=== PATIENT | female | born 1990 | race Caucasian/White ===

== ENCOUNTER → 2020-02-05 09:17 | Outpatient (CLI) | payer OTHER, SELFPAY ==
[2020-02-05 10:24] LABS: Add Manual Diff / Slide Review NO; Basophils Absolute Auto 0 /uL (0-100); Basophils Percent Auto 0.4 % (0-2); Eosinophils Absolute Auto 0 /uL (0-450); Eosinophils Percent Auto 0.5 % (2-4); Hematocrit 39.6 % (36-46); Hemoglobin 13.5 g/dL (12.0-16.0); Lymphocytes Absolute Auto 2100 /uL (1100-4500); Lymphocytes Percent Auto 27.2 % (25-40); Mean Corpuscular HGB Conc 34.2 % (30-36); Mean Corpuscular Volume 87.7 fL (80-100); Monocytes Absolute Auto 500 /uL (0-900); Monocytes Percent Auto 5.9 % (3-14); Neutrophils Absolute Auto 5100 /uL (1500-7000); Platelet Count 257 X10^3/uL (150-400); Red Blood Cell Count 4.51 X10^6/uL (4.0-5.2); Red Cell Distribution Width 12.5 % (11.6-14.8); White Blood Cell Count 7.7 X10^3/uL (4.5-11.0)
[2020-02-05 11:05] LABS: TSH w/ Reflex to FT4 1.43 uIU/mL (0.47-4.68)
[2020-02-05 16:42] LABS: Rubella Antibody IgG 28.5 IU/mL (>15)
[2020-02-06 10:36] LABS: Varicella IgG Antibody 2138 index (Immune >165)
[2020-02-08 03:36] LABS: Chlamydia trachomatis Negative (Negative); Mycoplasma genitalium Negative (Negative); Neisseria gonorrhoeae Negative (Negative)
== END ==
PROVIDERS: PCP Obstetrics & Gynecology; Visit Provider Obstetrics & Gynecology
DX: Z11.3 Encounter for screening for infections with a predominantly sexual mode of transmission (principal); Z31.69 Encounter for other general counseling and advice on procreation
CPT/HCPCS: 36415; 84443; 85025; 86762; 86787; 87491; 87591

== ENCOUNTER → 2020-05-21 13:04 | Outpatient (ROUT) | payer OTHER, SELFPAY ==
[2020-05-23 01:07] LABS: Chlamydia trachomatis NAA Negative (Negative); Neisseria gonorrhoeae NAA Negative (Negative)
== END ==
PROVIDERS: PCP Obstetrics & Gynecology; Visit Provider Obstetrics & Gynecology
DX: Z34.01 Encounter for supervision of normal first pregnancy, first trimester (principal)
CPT/HCPCS: 87491; 87591

== ENCOUNTER → 2020-06-03 09:16 | Outpatient (CLI) | payer OTHER, SELFPAY ==
[2020-06-03 09:59] LABS: Add Manual Diff / Slide Review NO; Basophils Absolute Auto 0 /uL (0-100); Basophils Percent Auto 0.5 % (0-2); Eosinophils Absolute Auto 0 /uL (0-450); Eosinophils Percent Auto 0.4 % (2-4); Hematocrit 38.3 % (36-46); Hemoglobin 13.1 g/dL (12.0-16.0); Lymphocytes Absolute Auto 1900 /uL (1100-4500); Lymphocytes Percent Auto 20.1 % (25-40); Mean Corpuscular HGB Conc 34.4 % (30-36); Mean Corpuscular Hemoglobin 30.1 PG (26-34); Mean Corpuscular Volume 87.6 fL (80-100); Monocytes Absolute Auto 800 /uL (0-900); Neutrophils Absolute Auto 6800 /uL (1500-7000); Platelet Count 238 X10^3/uL (150-400); Red Blood Cell Count 4.37 X10^6/uL (4.0-5.2); White Blood Cell Count 9.6 X10^3/uL (4.5-11.0)
[2020-06-03 10:10] LABS: Appearance Urine UA CLEAR; Bilirubin Urine UA NEGATIVE (NEGATIVE); Color Urine UA YELLOW; Glucose Urine UA NEGATIVE (Negative); Ketones Urine UA NEGATIVE (NEGATIVE); Leukocyte Esterase Urine UA NEGATIVE (NEGATIVE); Nitrite Urine UA NEGATIVE (Negative); Occult Blood Urine UA NEGATIVE (Negative); Protein Urine UA NEGATIVE (Negative); Urobilinogen Urine UA 0.2 E.U./dL (0.2)
[2020-06-03 11:19] LABS: Hepatitis B Surface Antigen NEGATIVE s/c (NEGATIVE); Rubella Antibody IgG 20.9 IU/mL (>15)
[2020-06-03 11:25] LABS: HIV 1 & 2 Ab/Ag 4th Gen Combo NEGATIVE (NEGATIVE); Hep C Virus Ab w/Reflex Quant NEGATIVE s/c (NEGATIVE)
[2020-06-04 07:36] LABS: RPR Screen Non Reactive (Non Reactive)
[2020-06-04 08:16] LABS: Varicella IgG Antibody 1558 index (Immune >165)
== END ==
PROVIDERS: PCP Obstetrics & Gynecology; Referring Provider Obstetrics & Gynecology; Visit Provider Obstetrics & Gynecology
DX: Z34.01 Encounter for supervision of normal first pregnancy, first trimester (principal); Z36.0 Encounter for antenatal screening for chromosomal anomalies
CPT/HCPCS: 36415; 80055; 81003; 86787; 86803; 86850; 86900; 86901; 87086; 87389

== ENCOUNTER → 2020-08-12 10:17 | Outpatient (CLI) | payer OTHER, SELFPAY ==
--- NOTE | 2020-08-12 10:18 | DI.US.S_ITS ---
PROCEDURE: US OB >= 14 WEEKS FETUS INDICATIONS: 20 week anatomy scan OUTSIDE/PRIOR DATING DATA: Last menstrual period (LMP): 03/15/20 . LMP-based estimated date of delivery (KEAGAN): 12/20/20 . First dating scan (date and location): 05/21/20 . Estimated date of delivery (KEAGAN) from first dating scan: 12/17/20 . TECHNIQUE: Real-time scanning was performed of the fetus, with image documentation and biometric measurements. Endovaginal scanning: Not performed COMPARISON: [facility], , OB <= 14 WEEKS FETUS, 05/21/2020, 8:31. [facility], , PELVIC COMPLETE, 02/05/2020, 9:15. FINDINGS: General: A single living intrauterine gestation is present. Presentation: Variable. Placenta: Placental position is anterior , without previa. Amniotic fluid index: 12.4 cm, normal range is 5-24 cm. Largest pocket measures 4.2 cm heart rate: 165 beats per minute. Maternal cervical canal: 3.9 cm long. Normal lower limit is 2.5 cm. biometrics: Biparietal diameter: 5.5 cm, 22 weeks 5 days. Head circumference: 19.8 cm, 22 weeks 0 days Abdominal circumference: 18.1 cm, 23 weeks 0 days Femur length: 3.8 cm, 22 weeks 2 days Estimated gestational age from initial scan: 21 weeks 6 days Composite gestational age from present scan: 22 weeks 4 days Estimated weight and percentile: 517 g, 81st percentile Measurement variability for biometric dating: +/- 7 days from 14 weeks to 15 weeks 6 days gestation, +/- 10 days from 16 weeks to 21 weeks 6 days gestation, +/- 2 weeks from 22 weeks to 27 weeks 6 days gestation, +/- 3 weeks for 28 weeks gestation or later. weight reference: 4500 g or EFW >90/95% is considered macrosomia or large for gestational age. EFW <10% is small for gestational age. EFW 5% or less is considered intra-uterine growth restriction. Anatomic survey: Neuro: Ventricles are non-dilated at less than 10 mm. Cisterna magna is normal at 3-11 mm. Cerebellum is normal in size and morphology. Nuchal skin fold: Normal at less than 6 mm between 14-21 weeks gestational age. Face: Nose and lips, facial profile are normal. Spine: No evidence for spina bifida. Heart: 4-chambered heart is present, with normal ventricular outflow tracts. Diaphragm: Diaphragm is intact. Stomach: Left-sided stomach is present. Kidneys: No hydronephrosis. Normal is less than 5 mm in 2nd trimester, less than 7 mm in 3rd trimester. Cord: 3-vessel cord has orthotopic insertion. Bladder: Normal in size. Extremities: All 4 extremities identified. IMPRESSION: Single living intrauterine fetus in variable presentation. Expected interval growth. Normal anatomic survey Dictated by: Italo Robert M.D. on 08/12/2020 at 13:43 Approved by: Italo Robert M.D. on 08/12/2020 at 13:47
== END ==
PROVIDERS: Referring Provider Obstetrics & Gynecology; Visit Provider Obstetrics & Gynecology
DX: Z34.02 Encounter for supervision of normal first pregnancy, second trimester (principal); Z3A.22 22 weeks gestation of pregnancy
CPT/HCPCS: 76811

== ENCOUNTER → 2020-10-07 08:30 | Outpatient (CLI) | payer OTHER, SELFPAY ==
[2020-10-07 10:54] LABS: Hematocrit 32.6 % (36-46)
[2020-10-07 11:01] LABS: GTT (PREG) 1 Hour PP 50gm Dose 92 mg/dL (76-139)
== END ==
PROVIDERS: Obstetrics & Gynecology; PCP Physician Assistant Medical; Referring Provider Internal Medicine Cardiovascular Disease; Visit Provider Internal Medicine Cardiovascular Disease
DX: Z34.02 Encounter for supervision of normal first pregnancy, second trimester (principal); Z3A.26 26 weeks gestation of pregnancy
CPT/HCPCS: 36415; 82950; 85014; 85018

== ENCOUNTER → 2020-11-28 09:45 | Outpatient (CLI) | payer OTHER, SELFPAY ==
[2020-11-29 11:40] LABS: Strep Grp B PCR POS for Grp B Strep
== END ==
PROVIDERS: PCP Physician Assistant Medical; Visit Provider Obstetrics & Gynecology
DX: Z34.03 Encounter for supervision of normal first pregnancy, third trimester (principal); Z3A.36 36 weeks gestation of pregnancy
CPT/HCPCS: 87653

== ENCOUNTER 2020-11-28 10:37 | Outpatient (CLI) | payer OTHER, SELFPAY ==
--- NOTE | 2020-11-28 16:39 | PM.OBTRLD ---
Visit Information Visit Information Date of evaluation: 11/28/20 Primary OB Provider: Tory Smith Reason for Evaluation: Yes non-stress test Comments/Additional reasons for admission: Patient sent from clinic for evaluation due to persistent tachycardia in the setting of copious movement. Patient is a @36+6, otherwise health with an uncomplicated . Vital Signs Vital Signs: [facility] Medical History History of IBS (~2015) Inclusion cyst of vulva Migraines (~2018) Surgical History Anesthesia History of appendectomy Inclusion cyst (~2017) Family History Grandfather Diabetes mellitus Congestive heart failure Grandmother Hyperlipidemia Hypertension Grandfather Cancer Grandmother Diabetes mellitus Hypertension Hyperlipidemia Myocardial infarction Mother No problems noted. Father No problems noted. Social History marital status: household members: spouse lives independently: Yes caregiver/support person: No housing: house pets and animals: No (Allergic to cats. 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 ) special romeo needs: No seatbelt use: always Smoking Status: Never smoker second hand exposure: No alcohol intake: never (Does not drink at all - upsets her stomach. ) substance use type: does not use and marijuana (as a teenager, none since.) during the past year weight has: remained stable caffeine: No (Aversion to it now; knows guidelines.) Type(s) of exercise: walking and normal ROM and activity (Very active job on her feet all day. ) frequency: daily Review of Systems Constitutional Constitutional: Reports system reviewed and no additional complaints, except as documented Evaluation Evaluation Baseline heart rate: 150 Variability: Moderate (11-25) monitor accelerations: Present Monitor Decelerations: Absent Contraction Frequency (minutes): 7 Category of Tracing: Reactive Status: Category l Diagnosis, Plan/Disposition Plan/Disposition Plan: Home with routine precautions. OB Disposition: home
== END 2020-11-28 11:35 | disposition home or self-care (01) ==
LOC: LABOR 10:59 → OB 12-04 15:02
PROVIDERS: PCP Physician Assistant Medical; Referring Provider Obstetrics & Gynecology; Visit Provider Obstetrics & Gynecology
DX: O36.8330 Maternal care for abnormalities of the fetal heart rate or rhythm, third trimester, not applicable or unspecified (principal); Z3A.36 36 weeks gestation of pregnancy
CPT/HCPCS: 59025; 87653; G0378; G0379

== ENCOUNTER 2020-12-15 03:41 | Observation (INO) | payer OTHER, SELFPAY ==
--- NOTE | 2020-12-15 06:53 | P.TNLD_ITS ---
Visit Information Visit Information Date of evaluation: 12/15/20 Primary OB Provider: Rylee Marques Reason for Evaluation: Yes rule out labor Comments/Additional reasons for admission: 30yo at 39w2d here for contractions starting earlier this morning. No LOF or vaginal bleeding. She is feeling her baby move regularly. [facility] Medical History History of IBS (~2016) Inclusion cyst of vulva Migraines (~2018) Surgical History Anesthesia History of appendectomy Inclusion cyst (~2017) Family History Grandfather Diabetes mellitus Congestive heart failure Grandmother Hyperlipidemia Hypertension Grandfather Cancer Grandmother Diabetes mellitus Hypertension Hyperlipidemia Myocardial infarction Mother No problems noted. Father No problems noted. Social History marital status: household members: spouse lives independently: Yes caregiver/support person: No housing: house pets and animals: No (Allergic to cats. 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 ) special romeo needs: No seatbelt use: always Smoking Status: Never smoker second hand exposure: No alcohol intake: never (Does not drink at all - upsets her stomach. ) substance use type: does not use and marijuana (as a teenager, none since.) during the past year weight has: remained stable caffeine: No (Aversion to it now; knows guidelines.) Type(s) of exercise: walking and normal ROM and activity (Very active job on her feet all day. ) frequency: daily Evaluation Evaluation Baseline heart rate: 140 Variability: Moderate (11-25) monitor accelerations: Present Monitor Decelerations: Absent Contraction Frequency (minutes): 3 Uterine Contraction Intensity: Mild Status: Category l Cervical dilation (cm): 1 Cervical effacement (%): 50 station: -3 Diagnosis, Plan/Disposition Final Diagnosis (1) False labor: Status: Acute (2) 39 weeks gestation of : Status: Acute Plan/Disposition Plan: 40yo at 39w2d here with contractions. Pt is having regular contractions, but no cervical change in over an hour. Safe for d/c home with return precautions. OB Disposition: home
== END 2020-12-15 05:27 | disposition home or self-care (01) ==
LOC: LABOR 03:45
PROVIDERS: Admitting Provider Family Medicine; PCP Physician Assistant Medical; Referring Provider Family Medicine; Visit Provider Family Medicine
CPT/HCPCS: 59025; G0378; G0379

== ENCOUNTER 2020-12-15 11:25 | Inpatient (IN) | payer OTHER, SELFPAY ==
[2020-12-15 13:06] LABS: Add Manual Diff / Slide Review NO; Basophils Absolute Auto 100 /uL (0-100); Basophils Percent Auto 0.9 % (0-2); Eosinophils Absolute Auto 0 /uL (0-450); Eosinophils Percent Auto 0.1 % (2-4); Hematocrit 37.8 % (36-46); Hemoglobin 12.4 g/dL (12.0-16.0); Lymphocytes Absolute Auto 1600 /uL (1100-4500); Lymphocytes Percent Auto 10.2 % (25-40); Mean Corpuscular HGB Conc 32.9 % (30-36); Mean Corpuscular Hemoglobin 28.3 PG (26-34); Mean Corpuscular Volume 86.1 fL (80-100); Monocytes Absolute Auto 900 /uL (0-900); Monocytes Percent Auto 5.6 % (3-14); Neutrophils Absolute Auto 13300 /uL (1500-7000); Neutrophils Percent Auto 83.2 % (50-75); Platelet Count 238 X10^3/uL (150-400); Red Blood Cell Count 4.39 X10^6/uL (4.0-5.2); Red Cell Distribution Width 13.2 % (11.6-14.8)
[2020-12-15] MEDS: FENT 2MCG/ML BUPIV 0.125% EPI 200 MCG/100 ML PLAST..BAG 12 MCG EPIDURAL ×2 (13:10→18:46)
--- NOTE | 2020-12-15 13:12 | P.HPOB_ITS ---
OB HPI Date/Time Date of admission: 12/15/20 Date Patient Seen: 12/15/20 Time Patient Seen: 12:30 History of Present Condition Chief complaint: LABOR : 1 Para: 0 Estimated Date of Delivery: 12/20/20 Estimated Gestational Age (weeks): 39w2d Narrative: Armida Piña is a 30 year old at 39w2d here with regular painful contractions. Pt reports contractions started yesterday, and have been increasing in frequency and intensity since then. No vaginal bleeding or LOF. She is feeling her baby move regularly. She was evaluated in L&D yesterday, and was 1cm dilated at that time without cervical change. History of Present care: good care, initiated at week # (9) and pounds weight gain (48) Dating criteria: LMP confirmed by 1st trimester US Ultrasounds: normal 1st trimester US and normal mid trimester US Obstetrical complications: none Medical complications: none Preadmission Labs Blood type: A (+) positive -: Antibody screen: negative, GBS status: positive, HBsAG: negative, HIV: negative and RPR/VDLR: negative -: Rubella: immune and Varicella: immune HCT: 37.8 HCAB: negative Cell-free DNA: Negative 1 hr GTT: 92 Evaluation Evaluation Baseline heart rate: 150 Variability: Moderate (11-25) monitor accelerations: Present Monitor Decelerations: Absent Contraction Frequency (minutes): 3 Uterine Contraction Intensity: Strong/Firm Status: Category l Cervical dilation (cm): 3 Cervical effacement (%): 90 station: -1 Laboratory results: Laboratory Tests 12/15/20 12:50 WBC 16.0 H RBC 4.39 Hgb 12.4 Hct 37.8 MCV 86.1 MCH 28.3 MCHC 32.9 RDW 13.2 Plt Count 238 Neut % (Auto) 83.2 H Lymph % (Auto) 10.2 L [place] % (Auto) 5.6 Eos % (Auto) 0.1 L Baso % (Auto) 0.9 Neut # (Auto) 60432 H Lymph # (Auto) 1600 [place]tinger # (Auto) 900 Eos # (Auto) 0 Baso # (Auto) 100 PFSH Medical History History of IBS (~2015) Inclusion cyst of vulva Migraines (~2018) Surgical History Anesthesia History of appendectomy Inclusion cyst (~2017) Family History Grandfather Diabetes mellitus Congestive heart failure Grandmother Hyperlipidemia Hypertension Grandfather Cancer Grandmother Diabetes mellitus Hypertension Hyperlipidemia Myocardial infarction Mother No problems noted. Father No problems noted. Social History marital status: household members: spouse lives independently: Yes caregiver/support person: No housing: house pets and animals: No (Allergic to cats. 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 ) special romeo needs: No seatbelt use: always Smoking Status: Never smoker second hand exposure: No alcohol intake: never (Does not drink at all - upsets her stomach. ) substance use type: does not use and marijuana (as a teenager, none since.) during the past year weight has: remained stable caffeine: No (Aversion to it now; knows guidelines.) Type(s) of exercise: walking and normal ROM and activity (Very active job on her feet all day. ) frequency: daily Meds Home Medications and Allergies Home Medications Medication Instructions Recorded Confirmed Type cetirizine 10 mg capsule (All Day 5 mg PO DAILY cap 03/21/19 02/05/20 History Allergy (cetirizine)) Lactobacillus acidophilus 1 1,000 mmu cells PO DAILY 05/06/20 05/06/20 History billion cell capsule (Probiotic Gold Acidophilus) prenat.vits,daija,[id number] 1 tab PO DAILY 05/06/20 05/06/20 History Allergies Allergy/AdvReac Type Severity Reaction Status Date / Time methocarbamol AdvReac Severe Vomitting Verified 05/06/20 09:18 adhesive tape AdvReac Mild Redness, Verified 05/06/20 09:18 irritation Exam Const General: cooperative, healthy appearing and comfortable Orientation: alert, awake and oriented x3 Resp Effort & Inspection: normal respiratory effort Auscultation: clear to auscultation bilaterally Cardio Rate: regular rate Rhythm: regular rhythm Heart Sounds: S1 normal, S2 normal and no murmurs GI Inspection: non-distended Palpation: soft and No tender Other: gravid Presentation: vertex Extrem General: no clubbing, cyanosis or edema Objective Labs Result Diagrams: 12/15/20 12:50 Labs: Laboratory Results - last 24 hr 12/15/20 12:50 WBC 16.0 H RBC 4.39 Hgb 12.4 Hct 37.8 MCV 86.1 MCH 28.3 MCHC 32.9 RDW 13.2 Plt Count 238 Neut % (Auto) 83.2 H Lymph % (Auto) 10.2 L Hettinger % (Auto) 5.6 Eos % (Auto) 0.1 L Baso % (Auto) 0.9 Neut # (Auto) 21463 H Lymph # (Auto) 1600 Hettinger # (Auto) 900 Eos # (Auto) 0 Baso # (Auto) 100 Assessment and Plan Assessment and Plan Assessment and Plan narrative: 30yo at 39w2d here in active labor. No complications with . Rh positive, GBS positive. - Expectant management, anticipate - FHT reassuring - GBS positive, penicillin for prophylaxis to start now - Epidural for pain control in place
--- NOTE | 2020-12-15 13:15 | PM.AN.REGBLK ---
Regional Block Pre-procedure Procedure: Continuous Lumbar Epidural for L&D Attending OB provider: Rylee Marques PMH/ROS narrative: , healthy in active labor. Hx: No personal or family history of anesthesia problems. PSH/Anesthesia history narrative: none Exam narrative: MP1, RRR, CTAB ASA Class: II Labs: Hct 37.8 % (36-46) 12/15/20 12:50 Plt Count 238 X10^3/uL (150-400) 12/15/20 12:50 Medications: Current Medications Generic Name Dose Route Start Last Admin Trade Name Freq PRN Reason Stop Dose Admin Calcium Carbonate 1,000 mg 12/15/20 11:43 Calcium Carbonate 500 Mg Tab PO Q2HR PRN Dyspepsia Carboprost Tromethamine 250 mcg 12/15/20 11:43 Carboprost 250 Mcg/Ml Ampul IM Q90M PRN Bleeding Fentanyl 50 mcg 12/15/20 11:43 Fentanyl 100 Mcg/2 Ml Inj IV Q1H PRN Pain, Moderate (4-6) Lactated Ringer's 1,000 mls @ 100 mls/hr 12/15/20 11:45 Lactated Ringers IV CONT KARRIE Oxytocin/Lactated Ringer's 30 unit in 500 mls @ 200 mls/hr 12/15/20 11:43 Oxytocin Premix IV CONT PRN Bleeding Protocol Tranexamic Acid 1,000 mg/ 100 mls @ 200 mls/hr 12/15/20 11:43 Sodium Chloride IV NOW PRN Bleeding Penicillin G Potassium 3,000,000 unit in 50 mls @ 100 mls/hr 12/15/20 17:00 Penicillin G Potassium IV Q4H KARRIE Penicillin G Potassium 5,000, 250 mls @ 250 mls/hr 12/15/20 13:15 000 unit/ Dextrose IV 12/15/20 14:14 NOW ONE Methylergonovine Maleate 0.2 mg 12/15/20 11:43 Methylergonovine 0.2 Mg Tablet PO Q6HR PRN Heavy Bleeding Methylergonovine Maleate 0.2 mg 12/15/20 11:43 Methylergonovine 0.2 Mg/Ml Vial IM NOW PRN Bleeding Misoprostol 800 mcg 12/15/20 11:43 Misoprostol 200 Mcg Tablet MS NOW PRN Bleeding Misoprostol 1,000 mcg 12/15/20 11:43 Misoprostol 200 Mcg Tablet MS NOW PRN Bleeding Misoprostol 400 mcg 12/15/20 11:43 Misoprostol 200 Mcg Tablet SL NOW PRN Bleeding Naloxone HCl 0.2 mg 12/15/20 11:43 Naloxone 0.4 Mg/Ml Vial IV Q2MIN PRN Opiate Reversal Ondansetron HCl 4 mg 12/15/20 11:43 Ondansetron 4 Mg/2 Ml Inj IV Q4HR PRN Nausea And Vomiting Oxytocin 10 unit 12/15/20 11:43 Oxytocin 10 Unit/Ml Vial IM NOW PRN Bleeding Allergies: Allergies Allergy/AdvReac Type Severity Reaction Status Date / Time methocarbamol AdvReac Severe Vomitting Verified 05/06/20 09:18 adhesive tape AdvReac Mild Redness, Verified 05/06/20 09:18 irritation Procedure Insertion date: 12/15/20 Insertion time: 13:00 Prep/Local: betadine x3 (chloroprep) and 1% lidocaine Interspace: L2-3 Patient position: sitting Needle: 18 gauge Perlatead Loss of resistance with: saline BRYAN at (cm): 5 Catheter placed at SKIN (cm): 10 Catheter in SPACE (cm): 5 Insertion: Yes CSF Initial Medications TEST DOSE time: 13:00 TEST DOSE: 1.5% lidocaine with epinephrine 1:200k (mL): 5 BOLUS DOSE time: 13:01 BOLUS DOSE (mL): 2 BOLUS DOSE med: other (10mcg fentanyl intrathecally, 90mcg fentanyl via epidural catheter) Infusion INFUSION: 0.0625% bupivacaine and with fentanyl 2 mcg/mL Initial rate (mL/hr): 12 Subsequent interventions: Time between Anesthesia start and procedure 2/2 labs being drawn (required to be done supine as h/o vasovagal response) and then positioning. Patient fully masked during procedure (hospital policy and COVID PCR pending). Post-procedure Anesthesia time START: 12:40 Anesthesia time END: 00:09 Post-procedure Anesthesia Assessment: No Anesthesia complications
[2020-12-15] MEDS: LACTATED RINGERS 1,000 ML 100 ML IV ×2 (13:36→22:21)
[2020-12-15] MEDS: PENICILLIN G POTASSIUM 5,000,000 UNIT in DEXTROSE 5% IN WATER 250 ML IV (13:37)
[2020-12-15 13:42] LABS: COVID19 - ADMIT (NP swab/PCR) Negative (Negative)
--- NOTE | 2020-12-15 14:50 | PM.OBPNLAB ---
Date/Time Date Patient Seen: 12/15/20 Time Patient Seen: 14:50 Pain Control Pain control: tolerating well and epidural Pelvic Exam Dilation (cm): 5 Effacement (%): 90 station: 0 Amniotic membrane status: Intact Comments: AROM performed 1446, moderate meconium noted. Contractions Contractions on admission: irregular Monitor mode: External Contraction frequency (min): 4 Contraction pattern: Irregular Contraction intensity: Strong/Firm Status status: Category l Heart Rate Baseline: 155 Monitor Accelerations: Episodic Monitor Decelerations: Absent Monitor Variability: Moderate Assessment and Plan Assessment: active labor Plan: continuous present management Comments: RT to attend delivery due to meconium staining.
[2020-12-15 15:25] VITALS: BP 119/61
[2020-12-15] MEDS: OXYTOCIN PREMIX 30 UNIT/500 ML PLAST..BAG IV (16:06)
[2020-12-15] MEDS: PENICILLIN G POTASSIUM 3,000,000 UNIT/50 ML FROZ.PIGGY 100 UNIT IV ×2 (17:30→21:01)
--- NOTE | 2020-12-15 22:54 | PM.OBPNLAB ---
Date/Time Date Patient Seen: 12/15/20 Time Patient Seen: 22:56 Pain Control Pain control: tolerating well Pelvic Exam Dilation (cm): 10 Effacement (%): 100 station: +2 Amniotic membrane status: Intact Contractions Monitor mode: External Contraction frequency (min): 4 Contraction pattern: Regular Contraction intensity: Strong/Firm Status status: Category l Heart Rate Baseline: 155 Monitor Accelerations: Episodic Monitor Decelerations: Absent Monitor Variability: Moderate Assessment and Plan Assessment: active labor and induction ongoing Plan: continuous present management Comments: Anticipate .
[2020-12-16 06:12] LABS: Hematocrit 33.1 % (36-46); Hemoglobin 10.9 g/dL (12.0-16.0)
[2020-12-16] MEDS: DOCUSATE 100 MG CAPSULE PO (09:34)
[2020-12-16] MEDS: ACETAMINOPHEN 325 MG TABLET 650 MG PO ×3 (11:26→23:21)
[2020-12-16] MEDS: IBUPROFEN 600 MG TABLET PO ×3 (11:27→23:20)
--- NOTE | 2020-12-16 14:44 | P.PNOB_ITS ---
Subjective - OB Subjective Patient comments: no complaints [place] baby status: doing well feeding status: exclusively breast feeding Date Patient Seen: 12/16/20 Time Patient Seen: 14:45 Exam Const General: cooperative, healthy appearing and comfortable HENMT Head: normal to inspection and atraumatic Eyes General: appearance normal, both eyes and all related structures Neck Neck: normal visual inspection Resp Effort & Inspection: normal respiratory effort and able to speak in complete sentences Auscultation: clear to auscultation bilaterally Cardio Rate: regular rate Rhythm: regular rhythm Heart Sounds: S1 normal, S2 normal and no murmurs GI Palpation: mass (Fundus is U -2, nontender, firm) Speculum Exam - Vagina: other (Perineal laceration repair intact, dry, and healing.) Extrem General: no calf tenderness and edema (Mild, both LE) Psych Appearance: grossly normal Mental Status: mental status grossly normal Speech and Movement: speech and movement normal Mood: congruent mood Affect: normal affect Attitude: cooperative Thought Process: normal Thought Content: normal Judgment: judgment good Objective Labs Result Diagrams: 12/16/20 06:00 Labs: Laboratory Results - last 24 hr 12/16/20 06:00 Hgb 10.9 L Hct 33.1 L Assessment & Plan Time Spent With Patient Time: Total time spent is greater than 50% in coordination of care (as documented) at patient's floor/unit and/or counseling patient: Time with patient: less than 15 minutes
--- NOTE | 2020-12-16 19:41 | P.DS_ITS ---
Discharge Providers Provider Date of admission: 12/15/20 11:25 Discharge Date: 12/16/20 Primary care physician: Sabina Davidson PA-C Consults: 12/17/20 01:08 Consult to Energy Trader Routine Comment: 12/17/20 05:06 Consult to Energy Trader Routine Comment: Discharge provider: Rene Camara MD Summary Hospital Course Date Patient Seen: 12/16/20 Time Patient Seen: 13:30 Diagnoses: S/P Vacuum extraction assisted vaginal Obstetrical delivery Hospital Course: Armida Piña is a 30 year old at 39w2d admitted 12/15/2020 with regular painful contractions. Pt reports contractions started 12/14 and have been increasing in frequency and intensity since then. No vaginal bleeding or LOF on admission. She was initiated on IV AB for GBS prophylaxis in labor. MARK placed and AROM performed which demonstrated moderate meconium staining. She progressed into the second stage with pitocin augmentation but after pushing for over two hours had only brought the vertex to +2 station. In the face of maternal exhaustion, the decision was made to proceed with an attempted vacuum extraction that was successful. She delivered a viable female infant at 0009 on the morning of 12/16/2020 with BW of 3581 gms. and Apgars of 8/9. She sustained a second degree perineal laceration which was repaired and the QBL was less than 200 cc. Following delivery she and the baby have done extremely well and she experienced prompt return of bowel and bladder function, is tolerating a regular diet, ambulating independently, and her pain is well controlled with PO ibuprofen. She will be discharged at this time to home in an afebrile, normotensive condition with discharge medications to include resumption of her at-home medications and a presciption for Ibuprofen 600 mg PO q 6 hrs. was sent to her pharmacy. Prior to discharge she was counselled re: precautionary symptoms, limitatons of activity, medications, and plans for follow-up. Writtent instructions were provided. She will be seen in 6 weeks for her check and her hu herb is planning to have a vasectomy performed. Peripartum Data Infant Delivery Method: Assisted Delivery (Vacuum extraction due to maternal exhaustion) Laceration Description: Perineal - 2nd Degree Episiotomy description: None complications: none 1: Gender: Female Disposition of : home Discharge Diagnosis (1) GBS carrier: Status: Acute (2) Maternal exhaustion, delivered, current hospitalization: Status: Acute (3) Vacuum extraction, delivered, current hospitalization: Status: Acute Status at Discharge Cognitive/behavioral status at discharge: at baseline, oriented Functional status at discharge: independent ambulation Overall status at discharge: patient is progressing back to baseline Time Spent with Patient Time attestation: Total time spent providing and/or coordinating discharge services: Time spent: Less than 30 minutes Objective Labs Result Diagrams: 12/16/20 06:00 Labs: Laboratory Results - last 24 hr 12/16/20 06:00 Hgb 10.9 L Hct 33.1 L Exam Const General: cooperative and comfortable Nutritional Appearance: average body habitus HENMT Head: normal to inspection Ears: hearing grossly normal bilaterally Eyes General: appearance normal, both eyes and all related structures Neck Neck: normal visual inspection Resp Effort & Inspection: normal respiratory effort and able to speak in complete sentences Auscultation: clear to auscultation bilaterally Cardio Rate: regular rate Rhythm: regular rhythm Heart Sounds: S1 normal, S2 normal and no murmurs GI Inspection: normal to inspection Palpation: soft, no hepatosplenomegaly and mass (Fundus is frm, NT, U-3) External Female Exam: other (Perineal laceration repair intact, dry, and healing) Extrem General: no calf tenderness and edema (Mild, bilateral LE) Psych Appearance: grossly normal Mental Status: mental status grossly normal Speech and Movement: speech and movement normal Mood: congruent mood Affect: normal affect Attitude: cooperative Thought Process: normal Thought Content: normal Judgment: judgment good Discharge Plan Discharge Plan Patient Disposition: Home Provider Discharge Comment: See written post- instructions. Your follow-up appointment will be in 6 weeks. Discharge orders & Medications Prescriptions: New ibuprofen 600 mg Tablet 600 mg PO Q6HR PRN (Reason: Pain, Mild (1-3)) Qty: 60 RF: 1 Continued All Day Allergy (cetirizine) 10 mg capsule 5 mg PO DAILY RF: 0 prenat.vits,daija,svu-oelx-nutwq Tablet 1 tab PO DAILY RF: 0 Probiotic Gold Acidophilus 1 billion cell capsule 1,000 mmu cells PO DAILY RF: 0 Follow up/Referrals: Sabina Davidson PA-C [Primary Care Provider] - Discharge Health Status Multidrug resistant organism: No MDRO Diet/Activity/Treatments Diet: Diet as Tolerated Activity: As tolerated. Skin/Wound/Dressing Care Report to your healthcare provider any signs of infection, such as:: chills, fever, increased pain, unusual drainage and unusual redness Visit Report/Discharge Packet Instructions: DI for Labor and Delivery, Vaginal Discharge Data Primary Care Provider: Sabina Davidson
[2020-12-17] MEDS: IBUPROFEN 600 MG TABLET PO (05:35)
[2020-12-17] MEDS: ACETAMINOPHEN 325 MG TABLET 650 MG PO (05:36)
[2020-12-17 09:03] VITALS: BP 103/67; PULSE 76; RESP 16; TEMP 36.6
--- NOTE | 2020-12-26 05:57 | PM.OBPRVD ---
Labor & Delivery Delivery date: 12/16/20 Intrapartal Events: Hypotonic Dysfunction Cervical ripening method: none Induction method: none Delivery augmentation: rupture of membranes and pitocin Delivery monitor: external FHT and external uterine Route of delivery: vacuum extraction Indication for instrumentation: maternal exhaustion Episiotomy description: None L&D Laceration Description: Perineal - 2nd Degree Baby 1: Infant gender: Female Presentation: vertex Position: Left Occiput Anterior Placenta delivery description: Spontaneous Cord Vessel Description: 3 Vessels score (1 min): 8 score (5 min): 9 weight: 7 lb 14.316 oz Narrative: the patient progressed well to the 2nd stage of labor at 11:01 p.m. on 12/15/2020 and after pushing for an hour with little or no progress due to maternal exhaustion, options were discussed with the patient and her and the decision was made to proceed with vacuum assisted delivery. A Kiwi OmniCup was applied with the vertex OA at +2 station and ample clinical pelvimetry. Three pulls with pressures less than 650 mg mercury each and pressure was fully released between pulls, were required for spontaneous delivery of the vertex over intact perineum. The shoulders delivered without difficulty and there was no cord entanglement noted. Delayed cord clamping for greater than 60 seconds was carried out and once clamped and cut, the umbilical cord was seen to have 3 vessels. Routine cord blood was obtained for laboratory study. The placenta delivered spontaneously with gentle cord traction and counter pressure on the lower uterine segment. IV Pitocin was administered and prompt firming of the uterus was noted. A second-degree perineal laceration was noted and repaired with 2 0 Vicryl in the usual manner. The delivery and repair were well tolerated with mother and both doing well at the completion of the procedure. QBL 158 cc. Complications experienced, none
== END 2020-12-17 10:20 | disposition home or self-care (01) | DRG 807 ==
PROVIDERS: Obstetrics & Gynecology; Admitting Provider Family Medicine; PCP Physician Assistant Medical; Referring Provider Family Medicine; Visit Provider Family Medicine
DX: O75.81 Maternal exhaustion complicating labor and delivery (principal); Z37.0 Single live birth; Z3A.39 39 weeks gestation of pregnancy; Z20.822 Contact with and (suspected) exposure to COVID-19; O99.824 Streptococcus B carrier state complicating childbirth; O62.2 Other uterine inertia; O70.1 Second degree perineal laceration during delivery
CPT/HCPCS: 01967; 36415; 59025; 59050; 59400; 59409; 85014; 85018; 85025; 86850; 86900; 86901; 87635; C9803; G0378; G0379; J2540; J2590